=== PATIENT | male | born 1985 | race Hispanic/Latino ===

== ENCOUNTER 2024-02-24 05:54 | Observation (INO) | payer OTHER ==
[2024-02-22 11:09] LABS: BASOPHILS % 0.6 % (0.0-1.0); EOSINOPHILS # (AUTO) 0.2 (0.0-0.4); EOSINOPHILS % 2.3 % (0.0-6.0); HEMATOCRIT 41.9 % (38.2-49.6); HEMOGLOBIN 14.2 g/dL (14.0-18.0); LYMPHOCYTES # (AUTO) 1.8 (1.0-3.2); LYMPHOCYTES % 27.4 % (18.0-39.1); MEAN CORPUSCULAR HEMOGLOBIN 31.2 pg (28-32); MEAN CORPUSCULAR HGB CONC 33.9 g/dL (31-35); MEAN CORPUSCULAR VOLUME 92.1 fL (81-99); MONOCYTES # (AUTO) 0.7 (0.2-0.8); NEUTROPHILS # (AUTO) 3.9 (2.1-6.9); NEUTROPHILS % 59.4 % (38.7-80.0); PLATELET COUNT 256 x10e3/uL (140-360); RED BLOOD COUNT 4.55 x10e6/uL (4.3-5.7); RED CELL DISTRIBUTION WIDTH 12.3 % (11.7-14.4)
[2024-02-22 11:28] LABS: INR 0.89; PROTHROMBIN TIME 12.5 seconds (11.9-14.5)
[2024-02-22 11:29] LABS: PARTIAL THROMBOPLASTIN TIME 23.4 seconds (23.8-35.5)
[2024-02-22 12:04] LABS: CALCIUM 9.6 mg/dL (8.4-10.2); CREATININE, SERUM 1.06 mg/dL (0.72-1.25)
[2024-02-24] VITALS (8 sets, daily range): BP systolic 119–126; BP diastolic 69–79; PULSE 61–84; RESP 17–18; TEMP 97.4–98.3; O2SAT 95–97
[~2024-02-24 05:54] MED LIST: BACLOFEN20 MG PO; LYRICA100 MG PO
[2024-02-24] MEDS: LACTATED RINGER'S 1,000 ML ONE ×2 (06:29→12:36)
[2024-02-24] MEDS ORDERED: BUPIVACAINE 0.5%/EPI 30 ML SDV INJ ONE (07:11)
[2024-02-24] MEDS ORDERED: Vancomycin IV 1 GM VIAL ONE (07:11)
[2024-02-24] MEDS ORDERED: THROMBIN FOR SOLN 5,000 UNIT VIAL ONE (07:11)
[2024-02-24] MEDS ORDERED: MAGNESIUM/ALUMINUM/SIMETHICONE 30 ML UDC PO PRN (09:45)
[2024-02-24] MEDS ORDERED: Morphine 10mg syringe 10 MG/ML INJ IM PRN (09:45)
[2024-02-24] MEDS ORDERED: PROMETHAZINE HCL (IM) 25 MG/ML VIAL IM PRN (09:45)
[2024-02-24] MEDS ORDERED: ACETAMINOPHEN 325 MG TAB PO PRN (09:45)
[2024-02-24] MEDS ORDERED: HYDROCODON-ACE1 EA12 PO (09:45)
[2024-02-24] MEDS ORDERED: ZOLPIDEM TARTRATE 5 MG TAB PO PRN (09:45)
[2024-02-24] MEDS: FENTANYL CITRATE/PF 100MCG/2 ML INJ IV ONE (10:20)
[2024-02-24] MEDS: CARISOPRODOL 350 MG TAB PO ONE (10:55)
[2024-02-24] MEDS ORDERED: CARISOPRODOL 350 MG TAB PO ONE (10:55)
[2024-02-24] MEDS: OXYCODONE/ACETAMINOPHEN 5-325 1 EACH TABLET PO ONE (10:58)
[2024-02-24] MEDS ORDERED: OXYCODONE/ACETAMINOPHEN 5-325 1 EACH TABLET PO ONE (10:58)
[2024-02-24] MEDS: FENTANYL CITRATE/PF 100MCG/2 ML INJ ONE (11:16)
[2024-02-24] MEDS: CEFAZOLIN SODIUM 2 GM ONE (11:17)
[2024-02-24] MEDS: LACTATED RINGER'S 1,000 ML IV SCH (12:46)
[2024-02-24] MEDS: HYDROMORPHONE 2MG/ML IV PRN (14:09)
[2024-02-24] MEDS ORDERED: FENTANYL CITRATE/PF 100MCG/2 ML INJ ONE (14:32)
[2024-02-24] MEDS ORDERED: MIDAZOLAM HCL 2 MG/2 ML VIAL ONE (14:32)
[2024-02-24] MEDS ORDERED: ONDANSETRON HCL INJ 2MG/ML 2ML 2 MG/ML VIAL ONE (15:02)
[2024-02-24] MEDS ORDERED: DEXAMETHASONE SOD PHOS 10 MG/1 ML VIAL ONE (15:02)
[2024-02-24] MEDS ORDERED: SEVOFLURANE INHAL SOLN 250 ML PEN BTL ONE (15:02)
[2024-02-24] MEDS ORDERED: ROCURONIUM BROMIDE 10 MG/ML 5ML VIAL IV ONE (15:02)
[2024-02-24] MEDS ORDERED: LIDOCAINE HCL 2% LOCAL INJ 5 ML SDV VIAL INJ ONE (15:02)
[2024-02-24] MEDS ORDERED: SUGAMMADEX SODIUM 200 MG/2 ML VIAL IV ONE (15:02)
[2024-02-24] MEDS ORDERED: PROPOFOL IV EMULSION 10 MG/ML 20 ML VIAL ONE (15:02)
[2024-02-24] MEDS ORDERED: SUCCINYLCHOLINE CHLORIDE 20 MG/ML 10ML VIAL ONE (15:02)
[2024-02-24] MEDS ORDERED: KETAMINE 50MG/5ML SYR ONE (15:02)
[2024-02-24] MEDS ORDERED: ACETAMINOPHEN 1000 MG/100 ML IV ONE (15:02)
[2024-02-24] MEDS ORDERED: DEXMEDETOMIDINE HCL 200 MCG/2 ML VIAL ONE (15:02)
[2024-02-24] MEDS: ONDANSETRON HCL INJ 2MG/ML 2ML 2 MG/ML VIAL IV PRN (16:43)
[2024-02-24] MEDS: PREGABALIN 50 MG CAP PO SCH (16:43)
[2024-02-24] MEDS: BACLOFEN 10 MG TAB PO SCH (16:43)
[2024-02-25] MEDS: OXYCODONE/ACETAMINOPHEN 5-325 1 EACH TABLET PO PRN (00:49)
[2024-02-25] MEDS: CARISOPRODOL 350 MG TAB PO PRN (02:54)
[2024-02-25 03:15] VITALS: BP 103/56; PULSE 88; RESP 18; TEMP 98.4; O2SAT 100
[2024-02-25 08:29] VITALS: BP 129/71; PULSE 77; RESP 18; TEMP 97.5; O2SAT 99
[2024-02-25 08:36] VITALS: BP 129/71; PULSE 77; RESP 18; TEMP 97.5; O2SAT 99
[2024-02-25] MEDS: HYDROCODONE/APAP 7.5MG-325MG 1 EA TAB PO ONE (09:42)
[2024-02-25 11:41] VITALS: BP 118/57; PULSE 80; RESP 18; TEMP 98; O2SAT 99
== END 2024-02-25 14:08 | disposition home or self-care (01) ==
LOC: OR 05:54 → PACU V 09:45 → MED/SURG2 11:05
PROVIDERS: ADMIT Neurological Surgery; ATTEND Neurological Surgery
DX: M51.16 Intervertebral disc disorders with radiculopathy, lumbar region (principal); Z01.810 Encounter for preprocedural cardiovascular examination; Z01.812 Encounter for preprocedural laboratory examination; Z01.818 Encounter for other preprocedural examination
CPT/HCPCS: 36415; 63047; 71046; 72020; 80048; 85025; 85610; 85730; 86850; 86900; 88304; 93005; 99252; G0378 ×2; J0131; J0330; J0690 ×2; J1100; J1170 ×2; J2001; J2250; J2405 ×2; J2704; J3010; J3370; J7121; 88311